=== PATIENT | male | born 1930 | race Caucasian/White ===

== ENCOUNTER 2017-01-03 14:00 | Outpatient (RCR) | payer MEDICARE, OTHER ==
[2016-12-28 14:30] VITALS: BP 104/51; PULSE 70; TEMP 98.6
[2016-12-30 08:45] VITALS: BP 106/57; PULSE 56; TEMP 98
[2017-01-01 15:10] VITALS: BP 123/59; PULSE 53; TEMP 98.1
[~2017-01-03] VITALS: Ht 152.4 cm; Wt 54.5 kg
[~2017-01-03 14:00] MED LIST: ADVIL200 MG PO; ALEVE 220MG220 MG PO; ARICEPT10 MG PO; ASPIR-LOW81 MG PO; ASPIRIN 81M81 MG/TA2 PO; ASPIRIN E.C. 8181 MG PO; B COMPLEX #11 TA1 PO; CALCIUM500 MG PO; CENTRUM SILVER1 TAB PO; CORICCLDFLU PO; CORICIDIN COUGH1 TAB PO; DEXILANT60 MG PO; DULCOLAX TAB5 MG PO; FIBER CHOICE1 CTB PO; FOSAMAX 10M10 MG/TAB PO; FOSAMAX PLUS D1 TAB PO; LINZESS290CAP PO; LOTREL 5 MG-201 CAP PO; MEGA MULTI PO; MIRALAX PA17 GM/Dose PO; MUCINEX FAST-M177 ML PO; NEXIUM 40MG40 MG PO; NEXIUM40 MG PO; NITROSTAT0.4 MG/TAB SL; NORCO 325 MG-51 TAB PO; NORVASC 10MG10 MG PO; OCUVITE1 TA1 PO; OSCAL 500 TAB500 MG PO; PRINIVIL10 MG PO; SENOKOT S 50 MG1 TAB PO; TEARS-ARTIFICIA15 ML OP; THERATEARS 15 M15 ML OP; TRILIPIX 135MG PO; TUMS500 MG; ULTRACET TABL1 UDTAB PO; VESICARE 5MG5 MG PO; VESICARE5 MG PO; VITAMIN D31000 IU PO; ZOCOR 20MG20 MG PO; ZOFRAN 4MG T4 MG/TAB PO; [UNRECOGNIZED DRUG - OTHER] PO
[2017-01-03 14:14] VITALS: BP 113/58; PULSE 63; TEMP 98.3
== END 2017-01-03 20:32 | disposition home or self-care (01) ==
LOC: EUO 14:00
DX: E61.1 Iron deficiency (principal); D64.9 Anemia, unspecified; Z79.899 Other long term (current) drug therapy
CPT/HCPCS: J2916

== ENCOUNTER 2017-01-09 09:08 | Day surgery (SDC) | payer MEDICARE, OTHER ==
[2017-01-09] VITALS (7 sets, daily range): BP systolic 123–148; BP diastolic 68–99; PULSE 53–57; TEMP 97.5–97.6
[~2017-01-09] VITALS: Ht 152.4 cm; Wt 54.3 kg
[2017-01-09] MEDS ORDERED: FOSAMAX 70MG TA70 MG PO (10:07)
[2017-01-09] MEDS ORDERED: IRON325 M2 PO (10:11)
[2017-01-09] MEDS ORDERED: CALCIUM CARBON650 M2 PO (10:17)
[2017-01-09] MEDS ORDERED: VITAMIN C500 MG PO (10:17)
[2017-01-09] MEDS ORDERED: ZYRTEC 10MG10 MG PO (10:19)
== END 2017-01-09 13:35 | disposition home or self-care (01) ==
LOC: SDCO 09:08
DX: K44.9 Diaphragmatic hernia without obstruction or gangrene (principal); K21.9 Gastro-esophageal reflux disease without esophagitis; D50.9 Iron deficiency anemia, unspecified; I25.10 Atherosclerotic heart disease of native coronary artery without angina pectoris; Z95.1 Presence of aortocoronary bypass graft; Z85.038 Personal history of other malignant neoplasm of large intestine; Z85.46 Personal history of malignant neoplasm of prostate; Z90.49 Acquired absence of other specified parts of digestive tract; Z90.79 Acquired absence of other genital organ(s); I73.9 Peripheral vascular disease, unspecified; E78.5 Hyperlipidemia, unspecified
CPT/HCPCS: OP; J2250; J3010; J7030

== ENCOUNTER 2017-07-22 16:35 | Emergency (ER) | payer MEDICARE, OTHER ==
[~2017-07-22] VITALS: Ht 152.4 cm; Wt 51.8 kg
[~2017-07-22 16:35] MED LIST changes: +CALCIUM CARBON650 M2 PO; +FOSAMAX 70MG TA70 MG PO; +IRON325 M2 PO; +VITAMIN C500 MG PO; +ZYRTEC 10MG10 MG PO
[2017-07-22 16:42] VITALS: TEMP 97.7
[2017-07-22 17:40] LABS: BASO # 0.1 (0.0-0.2); EOS # 0.2 (0.0-0.7); EOS % 2.2 % (0-4.0); GRAN # 4.6 (1.4-6.5); GRAN % 67.3 % (42.2-75.2); HEMATOCRIT 45.5 % (42.0-52.0); HEMOGLOBIN 15.4 g/dl (13.5-18.0); LYMPH # 1.4 (1.2-3.4); LYMPH % 20.5 % (20.0-51.0); MEAN CELL VOLUME 102 fl (80.0-100.0); MEAN CORPUSCULAR HEMOGLOBIN 35 pg (27.0-31.0); MEAN CORPUSCULAR HGB CONC 34 g/dl (33.0-37.0); MEAN PLATELET VOLUME 9.9 fl (7.4-10.4); MONO # 0.6 (0.1-0.6); MONO % 8.7 % (1.7-9.3); PLATELET COUNT 240 K/mm3 (130-400); RED BLOOD COUNT 4.47 M/mm3 (4.20-5.60); REDCELL DISTRIBUTION WIDTH-CV 12.1 % (11.5-14.5)
[2017-07-22 17:44] LABS: INR 0.9 (0.8-3.0); PROTHROMBIN TIME 10.3 SECONDS (9.7-12.8)
[2017-07-22 17:46] LABS: PARTIAL THROMBOPLASTIN TIME 32.3 SECONDS (26.0-37.0)
[2017-07-22 17:48] LABS: ALBUMIN 3.9 gm/dL (3.5-5.0); BILIRUBIN,TOTAL 0.9 mg/dL (0.0-1.0); CALCIUM 9.4 mg/dL (8.4-10.2); CREATININE, serum 1.64 mg/dL (0.66-1.25); POTASSIUM 4.1 mmol/L (3.4-5.0); TOTAL PROTEIN 6.9 gm/dL (6.4-8.2)
[2017-07-22 18:00] LABS: TROPONIN-I 0.015 ng/mL (0.000-0.034)
[2017-07-22] MEDS ORDERED: ANTIVERT 12.512.5 MG PO (21:48)
[2017-07-22 21:55] VITALS: BP 135/91; PULSE 56
== END 2017-07-22 21:55 | disposition home or self-care (01) ==
LOC: COL.ER 16:35
PROVIDERS: Emergency Medicine
DX: R42 Dizziness and giddiness (principal); I12.9 Hypertensive chronic kidney disease with stage 1 through stage 4 chronic kidney disease, or unspecified chronic kidney disease; N18.9 Chronic kidney disease, unspecified; I25.10 Atherosclerotic heart disease of native coronary artery without angina pectoris; I25.2 Old myocardial infarction; E78.5 Hyperlipidemia, unspecified; F03.90 Unspecified dementia, unspecified severity, without behavioral disturbance, psychotic disturbance, mood disturbance, and anxiety; Z95.5 Presence of coronary angioplasty implant and graft; Z86.73 Personal history of transient ischemic attack (TIA), and cerebral infarction without residual deficits; Z79.82 Long term (current) use of aspirin; Z85.46 Personal history of malignant neoplasm of prostate; Z85.038 Personal history of other malignant neoplasm of large intestine
CPT/HCPCS: J2765; J7040

== ENCOUNTER 2017-07-30 12:29 | Emergency (ER) | payer MEDICARE, OTHER ==
[~2017-07-30] VITALS: Ht 152.4 cm; Wt 54.5 kg
[~2017-07-30 12:29] MED LIST changes: +ANTIVERT 12.512.5 MG PO
[2017-07-30 12:38] VITALS: TEMP 97.6
[2017-07-30] MEDS ORDERED: NITROSTAT0.4 MG/TAB SL (12:58)
[2017-07-30] MEDS ORDERED: NORVASC2.5 MG PO (12:59)
[2017-07-30] MEDS ORDERED: NAMENDA 10MG TA10 MG PO (13:00)
[2017-07-30] MEDS ORDERED: ZANTAC 150MG T150 MG PO (13:01)
[2017-07-30] MEDS ORDERED: PREVAGEN (13:03)
[2017-07-30 13:18] LABS: BASO # 0.1 (0.0-0.2); BASO % 1.2 % (0.0-2.0); EOS # 0.2 (0.0-0.7); EOS % 2.9 % (0-4.0); GRAN # 4.4 (1.4-6.5); GRAN % 63.1 % (42.2-75.2); HEMATOCRIT 47.3 % (42.0-52.0); HEMOGLOBIN 15.6 g/dl (13.5-18.0); LYMPH # 1.6 (1.2-3.4); LYMPH % 22.5 % (20.0-51.0); MEAN CELL VOLUME 104 fl (80.0-100.0); MEAN CORPUSCULAR HEMOGLOBIN 34 pg (27.0-31.0); MEAN CORPUSCULAR HGB CONC 33 g/dl (33.0-37.0); MEAN PLATELET VOLUME 9.6 fl (7.4-10.4); MONO # 0.7 (0.1-0.6); MONO % 9.7 % (1.7-9.3); PLATELET COUNT 228 K/mm3 (130-400); RED BLOOD COUNT 4.57 M/mm3 (4.20-5.60); REDCELL DISTRIBUTION WIDTH-CV 12.5 % (11.5-14.5)
[2017-07-30 13:32] LABS: INR 0.9 (0.8-3.0); PROTHROMBIN TIME 10.4 SECONDS (9.7-12.8)
[2017-07-30 13:33] LABS: ALANINE AMINOTRANSFERASE 38 U/L (21-72); ALBUMIN 4.3 gm/dL (3.5-5.0); ALKALINE PHOSPHATASE 87 U/L (50-136); ANION GAP 8 mmol/L (7-16); AST,SGOT 40 U/L (15-37); BILIRUBIN,TOTAL 0.9 mg/dL (0.0-1.0); BLOOD UREA NITROGEN 33 mg/dL (9-20); CALCIUM 9.7 mg/dL (8.4-10.2); CARBON DIOXIDE 25 mmol/L (22-30); CHLORIDE 107 mmol/L (98-107); CREATININE, serum 1.49 mg/dL (0.66-1.25); GLUCOSE 90 mg/dL (74-106); POTASSIUM 4.4 mmol/L (3.4-5.0); SODIUM 140 mmol/L (137-145); TOTAL PROTEIN 7.3 gm/dL (6.4-8.2)
[2017-07-30 13:35] LABS: PARTIAL THROMBOPLASTIN TIME 32.3 SECONDS (26.0-37.0)
[2017-07-30 13:46] LABS: TROPONIN-I < 0.012 ng/mL (0.000-0.034)
[2017-07-30 19:05] VITALS: BP 132/84; PULSE 60
== END 2017-07-30 19:05 | disposition home or self-care (01) ==
LOC: COL.ER 12:29
PROVIDERS: Emergency Medicine
DX: R42 Dizziness and giddiness (principal); R00.1 Bradycardia, unspecified; E78.5 Hyperlipidemia, unspecified; I12.9 Hypertensive chronic kidney disease with stage 1 through stage 4 chronic kidney disease, or unspecified chronic kidney disease; N18.9 Chronic kidney disease, unspecified; Z95.5 Presence of coronary angioplasty implant and graft; Z85.46 Personal history of malignant neoplasm of prostate; Z85.038 Personal history of other malignant neoplasm of large intestine; Z90.49 Acquired absence of other specified parts of digestive tract; Z79.82 Long term (current) use of aspirin

== ENCOUNTER 2017-08-16 06:58 | Day surgery (SDC) | payer MEDICARE, OTHER ==
[2017-08-16] VITALS (14 sets, daily range): BP systolic 118–156; BP diastolic 73–84; PULSE 45–59; TEMP 98
[~2017-08-16] VITALS: Ht 152.4 cm; Wt 53.8 kg
[~2017-08-16 06:58] MED LIST changes: +APOAEQUORIN PO; -IRON325 M2 PO; +NAMENDA 10MG TA10 MG PO; +NATURAL IRON65 MG PO; +NORVASC2.5 MG PO; +ZANTAC 150MG T150 MG PO
[2017-08-16] MEDS ORDERED: ANTIVERT 12.512.5 MG PO (07:27)
[2017-08-16] MEDS ORDERED: MULTIPLE VITAMI1 CAP PO (07:36)
[2017-08-16 07:40] LABS: HEMATOCRIT 45.3 % (42.0-52.0); HEMOGLOBIN 15.3 g/dl (13.5-18.0); MEAN CELL VOLUME 102 fl (80.0-100.0); MEAN CORPUSCULAR HEMOGLOBIN 34 pg (27.0-31.0); MEAN CORPUSCULAR HGB CONC 34 g/dl (33.0-37.0); MEAN PLATELET VOLUME 9.7 fl (7.4-10.4); PLATELET COUNT 263 K/mm3 (130-400); RED BLOOD COUNT 4.46 M/mm3 (4.20-5.60); REDCELL DISTRIBUTION WIDTH-CV 12.5 % (11.5-14.5)
[2017-08-16 07:48] LABS: CALCIUM 8.8 mg/dL (8.4-10.2); CREATININE, serum 1.5 mg/dL (0.66-1.25); POTASSIUM 4.7 mmol/L (3.4-5.0)
[2017-08-16 08:07] LABS: PROTHROMBIN TIME 11.4 SECONDS (9.7-12.8)
== END 2017-08-16 17:45 | disposition home or self-care (01) ==
LOC: COL.CAR 06:58
PROVIDERS: Internal Medicine Cardiovascular Disease
DX: I25.700 Atherosclerosis of coronary artery bypass graft(s), unspecified, with unstable angina pectoris (principal); I08.3 Combined rheumatic disorders of mitral, aortic and tricuspid valves; I10 Essential (primary) hypertension; F03.90 Unspecified dementia, unspecified severity, without behavioral disturbance, psychotic disturbance, mood disturbance, and anxiety; I49.3 Ventricular premature depolarization; E78.2 Mixed hyperlipidemia; Z79.82 Long term (current) use of aspirin; Z95.1 Presence of aortocoronary bypass graft; Z86.73 Personal history of transient ischemic attack (TIA), and cerebral infarction without residual deficits; Z95.5 Presence of coronary angioplasty implant and graft; Z82.49 Family history of ischemic heart disease and other diseases of the circulatory system; Z80.9 Family history of malignant neoplasm, unspecified
CPT/HCPCS: C1769; C1894; J2250; J3010; Q9967

== ENCOUNTER 2018-01-26 20:53 | Observation (INO) | payer MEDICARE, OTHER ==
[~2018-01-26] VITALS: Ht 149.9 cm; Wt 58.6 kg
[~2018-01-26 20:53] MED LIST changes: +MAGNESIUM200 MG PO; +MASON NATURAL2000 IU PO; +MULTIPLE VITAMI1 CAP PO; +TOPROL XL 25MG25 MG PO; +VITAMIN B COMPL1 SGL PO
[2018-01-26] MEDS ORDERED: CORICIDIN HBP1 EACH PO (21:19)
[2018-01-26] MEDS ORDERED: ZEBETA 5MG5 MG PO (21:21)
[2018-01-26] MEDS ORDERED: CLARITIN 1010 MG/TAB PO (21:22)
[2018-01-26 21:36] LABS: BASO % 0.5 % (0.0-2.0); EOS # 0.1 (0.0-0.7); EOS % 0.8 % (0-4.0); GRAN # 7.1 (1.4-6.5); GRAN % 82.9 % (42.2-75.2); HEMOGLOBIN 12.9 g/dl (13.5-18.0); LYMPH # 0.6 (1.2-3.4); LYMPH % 6.6 % (20.0-51.0); MEAN CELL VOLUME 91 fl (80.0-100.0); MEAN CORPUSCULAR HEMOGLOBIN 29 pg (27.0-31.0); MEAN CORPUSCULAR HGB CONC 32 g/dl (33.0-37.0); MEAN PLATELET VOLUME 10.2 fl (7.4-10.4); MONO # 0.8 (0.1-0.6); PLATELET COUNT 203 K/mm3 (130-400); RED BLOOD COUNT 4.42 M/mm3 (4.20-5.60); REDCELL DISTRIBUTION WIDTH-CV 14.7 % (11.5-14.5)
[2018-01-26 21:45] LABS: ALBUMIN 3.6 gm/dL (3.5-5.0); BILIRUBIN,TOTAL 0.7 mg/dL (0.0-1.0); C-REACTIVE PROTEIN 2.4 mg/dL (0.0-0.9); CALCIUM 8.7 mg/dL (8.4-10.2); CREATININE, serum 1.51 mg/dL (0.66-1.25); TOTAL PROTEIN 6.9 gm/dL (6.4-8.2)
[2018-01-26 21:53] LABS: TROPONIN-I 0.03 ng/mL (0.000-0.034)
[2018-01-26 22:27] LABS: COLLECTION METHOD CLEAN CATCH
[2018-01-26 22:39] LABS: MUCOUS Present /lpf; PH 5 (5-8); SQUAMOUS EPITHELIAL None Seen /hpf; URINE APPEARANCE Clear; URINE BACTERIA Rare /hpf; URINE BILIRUBIN Negative (NEGATIVE); URINE BLOOD Negative (NEGATIVE); URINE COLOR Yellow; URINE GLUCOSE Negative (NEGATIVE); URINE KETONE Negative (NEGATIVE); URINE LEUKOCYTE ESTERASE Negative (NEGATIVE); URINE NITRATE Negative (NEGATIVE); URINE PROTEIN(semi-quant) 2+ (NEGATIVE); URINE RBC 0-2 /hpf; URINE UROBILINOGEN Negative (NEGATIVE)
[2018-01-26] MEDS ORDERED: PREVAGEN PO (23:23)
[2018-01-27] VITALS (8 sets, daily range): BP systolic 116–164; BP diastolic 58–82; PULSE 59–66; TEMP 97.9–99.4
[2018-01-28 04:00] VITALS: BP 164/73; PULSE 61; TEMP 97.6
[2018-01-28 07:16] LABS: BASO % 0.7 % (0.0-2.0); EOS # 0.1 (0.0-0.7); EOS % 1.4 % (0-4.0); GRAN # 2.4 (1.4-6.5); GRAN % 58.8 % (42.2-75.2); HEMATOCRIT 34.3 % (42.0-52.0); HEMOGLOBIN 10.8 g/dl (13.5-18.0); LYMPH # 1.1 (1.2-3.4); LYMPH % 27.1 % (20.0-51.0); MEAN CELL VOLUME 94 fl (80.0-100.0); MEAN CORPUSCULAR HEMOGLOBIN 29 pg (27.0-31.0); MEAN CORPUSCULAR HGB CONC 32 g/dl (33.0-37.0); MEAN PLATELET VOLUME 10.9 fl (7.4-10.4); MONO # 0.5 (0.1-0.6); MONO % 11.8 % (1.7-9.3); PLATELET COUNT 170 K/mm3 (130-400); RED BLOOD COUNT 3.67 M/mm3 (4.20-5.60); REDCELL DISTRIBUTION WIDTH-CV 15.1 % (11.5-14.5)
[2018-01-28 07:25] LABS: ALBUMIN 2.6 gm/dL (3.5-5.0); BILIRUBIN,TOTAL 0.2 mg/dL (0.0-1.0); CALCIUM 7.4 mg/dL (8.4-10.2); CREATININE, serum 1.22 mg/dL (0.66-1.25); POTASSIUM 3.7 mmol/L (3.4-5.0); TOTAL PROTEIN 5.4 gm/dL (6.4-8.2)
[2018-01-28 07:26] VITALS: BP 149/78; PULSE 60; TEMP 98.1
[2018-01-28 12:20] VITALS: BP 139/78; PULSE 60; TEMP 98.9
[2018-01-28] MEDS ORDERED: ASPIRIN E.C. 8181 MG PO (15:19)
[2018-01-28] MEDS ORDERED: TYLENOL 325MG325 MG PO (15:19)
[2018-01-28] MEDS ORDERED: MIRALAX PA17 GM/Dose PO (15:20)
[2018-01-28] MEDS ORDERED: ZITHROMAX 250M250 MG PO (15:22)
[2018-01-28 16:48] VITALS: BP 139/78; PULSE 60; TEMP 98.9
== END 2018-01-28 17:11 | disposition home or self-care (01) ==
LOC: COL.ER 20:53 → MEDICAL 23:06 → EDBEDREQ 23:31 → MEDICAL 01-27 02:00
PROVIDERS: Emergency Medicine; Internal Medicine
DX: J40 Bronchitis, not specified as acute or chronic (principal); G30.9 Alzheimer's disease, unspecified; F02.80 Dementia in other diseases classified elsewhere, unspecified severity, without behavioral disturbance, psychotic disturbance, mood disturbance, and anxiety; I12.9 Hypertensive chronic kidney disease with stage 1 through stage 4 chronic kidney disease, or unspecified chronic kidney disease; N18.3 Chronic kidney disease, stage 3 (moderate); R53.81 Other malaise; Z86.73 Personal history of transient ischemic attack (TIA), and cerebral infarction without residual deficits; K59.00 Constipation, unspecified; I25.10 Atherosclerotic heart disease of native coronary artery without angina pectoris
CPT/HCPCS: G0378; G8978-GP; G8979-GP; G8987-GO; G8988-GO; J0456; J0696; J1644; J7030; J7050

== ENCOUNTER → 2018-02-22 | Outpatient (CLI) | payer MEDICARE, OTHER ==
[~2018-02-22] MED LIST changes: +CLARITIN 1010 MG/TAB PO; +CORICIDIN HBP1 EACH PO; +PREVAGEN PO; +TYLENOL 325MG325 MG PO; +ZEBETA 5MG5 MG PO; +ZITHROMAX 250M250 MG PO
== END ==
LOC: COL.RAD 10:38
DX: R13.10 Dysphagia, unspecified (principal)
CPT/HCPCS: G8996-GN; G8997-GN; G8998-GN

== ENCOUNTER 2018-04-28 19:37 | Emergency (ER) | payer MEDICARE ==
[~2018-04-28] VITALS: Ht 167.6 cm; Wt 63.6 kg
[2018-04-28 19:43] VITALS: TEMP 98.6
[2018-04-28 20:14] LABS: BASO % 0.5 % (0.0-2.0); EOS % 0.1 % (0-4.0); GRAN # 7.6 (1.4-6.5); GRAN % 86.2 % (42.2-75.2); HEMATOCRIT 50.4 % (42.0-52.0); HEMOGLOBIN 16.9 g/dl (13.5-18.0); LYMPH # 0.6 (1.2-3.4); LYMPH % 7.1 % (20.0-51.0); MEAN CELL VOLUME 99 fl (80.0-100.0); MEAN CORPUSCULAR HEMOGLOBIN 33 pg (27.0-31.0); MEAN CORPUSCULAR HGB CONC 34 g/dl (33.0-37.0); MEAN PLATELET VOLUME 9.7 fl (7.4-10.4); MONO # 0.5 (0.1-0.6); MONO % 5.8 % (1.7-9.3); PLATELET COUNT 226 K/mm3 (130-400); REDCELL DISTRIBUTION WIDTH-CV 15.1 % (11.5-14.5)
[2018-04-28 20:25] LABS: ALBUMIN 4.1 gm/dL (3.5-5.0); BILIRUBIN,TOTAL 1.2 mg/dL (0.0-1.0); CALCIUM 9.4 mg/dL (8.4-10.2); CREATININE, serum 1.5 mg/dL (0.66-1.25); POTASSIUM 4.5 mmol/L (3.4-5.0); TOTAL PROTEIN 7.6 gm/dL (6.4-8.2)
[2018-04-28] MEDS ORDERED: XANAX .25M0.25 MG/TA PO (21:31)
[2018-04-28] MEDS ORDERED: FERROUSAL325 MG PO (21:32)
[2018-04-28 21:34] VITALS: BP 113/88; PULSE 61
== END 2018-04-28 21:39 | disposition home or self-care (01) ==
LOC: COL.ER 19:37
PROVIDERS: Emergency Medicine
DX: S30.0XXA Contusion of lower back and pelvis, initial encounter (principal); R53.1 Weakness; G30.9 Alzheimer's disease, unspecified; F02.80 Dementia in other diseases classified elsewhere, unspecified severity, without behavioral disturbance, psychotic disturbance, mood disturbance, and anxiety; I12.9 Hypertensive chronic kidney disease with stage 1 through stage 4 chronic kidney disease, or unspecified chronic kidney disease; N18.9 Chronic kidney disease, unspecified; Z86.73 Personal history of transient ischemic attack (TIA), and cerebral infarction without residual deficits; W19.XXXA Unspecified fall, initial encounter
CPT/HCPCS: J1885

== ENCOUNTER → 2018-05-10 | Outpatient (CLI) | payer MEDICARE, OTHER ==
[~2018-05-10] MED LIST changes: +FERROUSAL325 MG PO; +XANAX .25M0.25 MG/TA PO
== END ==
LOC: COL.RAD 12:06
DX: S22.080A Wedge compression fracture of T11-T12 vertebra, initial encounter for closed fracture (principal); S32.010A Wedge compression fracture of first lumbar vertebra, initial encounter for closed fracture; T14.90XA Injury, unspecified, initial encounter; R15.0 Incomplete defecation

== ENCOUNTER → 2018-05-23 | Outpatient (REF) | LOC: ZLAB.STJ 13:54 | DX: R53.1 Weakness (principal) ==

== ENCOUNTER → 2018-06-14 | Outpatient (CLI) | payer MEDICARE, OTHER ==
[2018-06-14 11:56] LABS: COLLECTION METHOD CLEAN CATCH
[2018-06-14 12:01] LABS: PH 5 (5-8); SQUAMOUS EPITHELIAL None Seen /hpf; URINE APPEARANCE Clear; URINE BACTERIA None Seen /hpf; URINE BILIRUBIN Negative (NEGATIVE); URINE BLOOD Negative (NEGATIVE); URINE COLOR Yellow; URINE GLUCOSE Negative (NEGATIVE); URINE KETONE Negative (NEGATIVE); URINE LEUKOCYTE ESTERASE Negative (NEGATIVE); URINE NITRATE Negative (NEGATIVE); URINE PROTEIN(semi-quant) 1+ (NEGATIVE); URINE RBC 0-2 /hpf; URINE UROBILINOGEN Negative (NEGATIVE)
== END ==
LOC: ZLAB.STJ 11:22
PROVIDERS: Family Medicine
DX: N39.0 Urinary tract infection, site not specified (principal)

== ENCOUNTER → 2018-07-17 | Outpatient (REF) ==
[2018-07-17 13:50] LABS: BASO % 0.5 % (0.0-2.0); EOS # 0.1 (0.0-0.7); EOS % 1.7 % (0-4.0); GRAN # 6.6 (1.4-6.5); GRAN % 84.9 % (42.2-75.2); HEMATOCRIT 34.8 % (42.0-52.0); HEMOGLOBIN 10.8 g/dl (13.5-18.0); LYMPH # 0.6 (1.2-3.4); LYMPH % 8.2 % (20.0-51.0); MEAN CELL VOLUME 107 fl (80.0-100.0); MEAN CORPUSCULAR HEMOGLOBIN 33 pg (27.0-31.0); MEAN CORPUSCULAR HGB CONC 31 g/dl (33.0-37.0); MONO # 0.3 (0.1-0.6); MONO % 4.3 % (1.7-9.3); PLATELET COUNT 224 K/mm3 (130-400); RED BLOOD COUNT 3.24 M/mm3 (4.20-5.60); REDCELL DISTRIBUTION WIDTH-CV 14.6 % (11.5-14.5)
[2018-07-17 14:11] LABS: ALBUMIN 3.2 gm/dL (3.5-5.0); BILIRUBIN,TOTAL 0.7 mg/dL (0.0-1.0); CALCIUM 9.4 mg/dL (8.4-10.2); CREATININE, serum 2.06 mg/dL (0.66-1.25); POTASSIUM 4.7 mmol/L (3.4-5.0); TOTAL PROTEIN 5.9 gm/dL (6.4-8.2)
== END ==
LOC: ZLAB.STJ 13:45
PROVIDERS: Family Medicine
DX: I10 Essential (primary) hypertension (principal); R53.81 Other malaise; R27.8 Other lack of coordination